=== PATIENT | female | born 1980 | race Caucasian/White ===

== ENCOUNTER → 2016-10-31 | Outpatient (CLI) | payer BC ==
[~2016-10-31] MED LIST: FERREX 150 FOR1 EAC1 PO; LANSINOH TP; MOTRIN-DPS800 MG PO; PRENATAL VIT1 TAB PO; PROTONIX40 MG PO; TYLENOL #3 DPS1 TAB PO
== END | disposition home or self-care (01) ==
LOC: RAD.S 10:09
DX: G43.909 Migraine, unspecified, not intractable, without status migrainosus (principal); Z96.21 Cochlear implant status